=== PATIENT | female | born 1955 | race Caucasian/White ===

== ENCOUNTER 2023-03-31 12:32 | Emergency (ER) | payer MEDICARE, OTHER ==
[2023-03-31] MEDS ORDERED: Albuterol/Ipratropium 3.0-0.5 MG/3 ML Neb Soln NEB ONE (12:43)
[2023-03-31 13:07] LABS: BASOPHILS PERCENT AUTO 0.1 % (0.2-1.2); EOSINOPHILS ABSOLUTE AUTO 0.1 x10^3/uL (0.0-0.5); EOSINOPHILS PERCENT AUTO 0.6 % (0.0-4.0); HEMATOCRIT 37.1 % (33.0-47.0); HEMOGLOBIN 11.2 g/dL (12.0-16.0); IMMATURE GRAN ABSOLUTE AUTO 0.02 x10^3/uL (0.00-0.07); LYMPHOCYTES ABSOLUTE AUTO 1.8 x10^3/uL (1.0-4.8); LYMPHOCYTES PERCENT AUTO 17.2 % (25.0-50.0); MEAN CORPUSCULAR HEMOGLOBIN 22.6 pg (26.0-32.0); MEAN CORPUSCULAR HGB CONC 30.2 g/dL (32.0-36.0); MEAN CORPUSCULAR VOLUME 74.8 fL (78.0-93.0); MONOCYTES ABSOLUTE AUTO 0.7 x10^3/uL (0.0-0.8); MONOCYTES PERCENT AUTO 6.5 % (2.0-11.0); NEUTROPHILS ABSOLUTE AUTO 7.9 x10^3/uL (1.8-7.7); NEUTROPHILS PERCENT AUTO 75.4 % (50.0-80.0); RED BLOOD CELL COUNT 4.96 x10^6/uL (4.00-5.50); WHITE BLOOD CELL COUNT,WBC 10.5 x10^3/uL (4.0-10.0)
[2023-03-31 13:19] LABS: PLATELET COUNT,PLT 205 x10^3/uL (130-400)
[2023-03-31 13:29] LABS: D-DIMER QUANTITATIVE 4.38 mg/LFEU (<=0.58); INR 1.1 (0.9-1.1); PROTHROMBIN TIME 11.7 SEC (9.5-12.2); PTT,PARTIAL THROMBOPLSTIN TIME 23.9 SEC (23.6-33.6)
[2023-03-31 13:35] LABS: A/G RATIO 0.74; ALANINE AMINOTRANSFERASE,ALT 16 U/L (14-59); ALBUMIN 3.4 g/dL (3.4-5.0); ALKALINE PHOSPHATASE 117 U/L (46-116); ANION GAP 14.9 mmol/L (5-15); ASPARTATE AMNIOTRANSFERASE,AST 12 U/L (15-37); BILIRUBIN TOTAL 0.6 mg/dL (0.2-1.0); BLOOD UREA NITROGEN,BUN 16 mg/dL (7-18); C-REACTIVE PROTEIN 1.49 mg/dL (<=0.30); CALCIUM 8.9 mg/dL (8.5-10.1); CARBON DIOXIDE,CO2 25 mmol/L (21-32); CHLORIDE,CL 102 mmol/L (98-107); CREATININE 1.2 mg/dL (0.55-1.02); ESTIMATED GFR 50 mL/min (>=60); GLUCOSE RANDOM 325 mg/dL (70-99); POTASSIUM,K 3.9 mmol/L (3.5-5.1); PRO B-TYPE NATRIUR PEPT,BNPPRO 7560 pg/mL (<=125); SODIUM,NA 138 mmol/L (136-145)
[2023-03-31] MEDS ORDERED: Iopamidol 755 Mg/ML 100 ML Bottle IVPUSH ONE (13:42)
[2023-03-31] MEDS ORDERED: Furosemide 40 MG/4 ML VIAL IV ONE (14:22)
[2023-03-31 14:23] LABS: CORONAVIRUS COVID-19 NAA NEGATIVE (NEGATIVE); INFLUENZA A NAA NEGATIVE (NEGATIVE); INFLUENZA B NAA NEGATIVE (NEGATIVE)
[2023-03-31] MEDS ORDERED: Heparin Sodium 5,000 Units/ML Vial IVPUSH ONE (15:53)
[2023-03-31] MEDS ORDERED: Heparin Sodium/0.45% NaCl 25,000 UNITS/500 ML BAG IV SCH (16:00)
[2023-03-31] MEDS ORDERED: HYDROmorphone 0.5 MG/0.5 ML Syringe IVPUSH ONE (16:11)
[2023-03-31] MEDS ORDERED: Naloxone 0.4 MG/ML SDV IVPUSH PRN (16:11)
== END 2023-03-31 17:00 | disposition short-term general hospital (02) ==
LOC: VM.ED 12:32
DX: I26.99 Other pulmonary embolism without acute cor pulmonale (principal); R77.8 Other specified abnormalities of plasma proteins; I11.0 Hypertensive heart disease with heart failure; I50.9 Heart failure, unspecified; I25.10 Atherosclerotic heart disease of native coronary artery without angina pectoris; E11.9 Type 2 diabetes mellitus without complications; R00.0 Tachycardia, unspecified; Z91.048 Other nonmedicinal substance allergy status; Z88.8 Allergy status to other drugs, medicaments and biological substances; Z88.5 Allergy status to narcotic agent; Z20.822 Contact with and (suspected) exposure to COVID-19
CPT/HCPCS: 0240U; 36415; 71045; 71275; 80053; 83880; 84484; 85025; 85379; 85610; 85730; 86140; 93005; 93010; 94640; 96365; 96375; 99284; 99285-25; J1170; J1644; J1940; J7620-GY; Q9967

== ENCOUNTER 2024-03-19 15:36 | Emergency (ER) | payer MEDICARE, OTHER ==
[2024-03-19 16:09] LABS: BASOPHILS PERCENT AUTO 0.2 % (0.2-1.2); EOSINOPHILS ABSOLUTE AUTO 0.3 x10^3/uL (0.0-0.5); EOSINOPHILS PERCENT AUTO 4.2 % (0.0-4.0); HEMATOCRIT 36.1 % (33.0-47.0); HEMOGLOBIN 11.7 g/dL (12.0-16.0); IMMATURE GRAN ABSOLUTE AUTO 0.01 x10^3/uL (0.00-0.07); LYMPHOCYTES ABSOLUTE AUTO 2.1 x10^3/uL (1.0-4.8); MEAN CORPUSCULAR HGB CONC 32.4 g/dL (32.0-36.0); MEAN CORPUSCULAR VOLUME 83.2 fL (78.0-93.0); MONOCYTES ABSOLUTE AUTO 0.6 x10^3/uL (0.0-0.8); MONOCYTES PERCENT AUTO 8.5 % (2.0-11.0); NEUTROPHILS ABSOLUTE AUTO 3.6 x10^3/uL (1.8-7.7); NEUTROPHILS PERCENT AUTO 54.9 % (50.0-80.0); PLATELET COUNT,PLT 208 x10^3/uL (130-400); RED BLOOD CELL COUNT 4.34 x10^6/uL (4.00-5.50); WHITE BLOOD CELL COUNT,WBC 6.6 x10^3/uL (4.0-10.0)
[2024-03-19 16:41] LABS: A/G RATIO 1.06; ALANINE AMINOTRANSFERASE,ALT 21 U/L (14-59); ALBUMIN 3.6 g/dL (3.4-5.0); ALKALINE PHOSPHATASE 124 U/L (46-116); ANION GAP 13.7 mmol/L (5-15); ASPARTATE AMNIOTRANSFERASE,AST 18 U/L (15-37); BILIRUBIN TOTAL 0.5 mg/dL (0.2-1.0); BLOOD UREA NITROGEN,BUN 17 mg/dL (7-18); CALCIUM 8.9 mg/dL (8.5-10.1); CARBON DIOXIDE,CO2 27 mmol/L (21-32); CHLORIDE,CL 105 mmol/L (98-107); CREATININE 1.1 mg/dL (0.55-1.02); ESTIMATED GFR 55 mL/min (>=60); GLUCOSE RANDOM 220 mg/dL (70-99); POTASSIUM,K 3.7 mmol/L (3.5-5.1); PRO B-TYPE NATRIUR PEPT,BNPPRO 101 pg/mL (<=125); SODIUM,NA 142 mmol/L (136-145)
[2024-03-19 17:04] LABS: CORONAVIRUS COVID-19 NAA NEGATIVE (NEGATIVE); INFLUENZA A NAA NEGATIVE (NEGATIVE); INFLUENZA B NAA NEGATIVE (NEGATIVE); RESPIRATORY SYNCYTIAL VIR NAA NEGATIVE (NEGATIVE)
[2024-03-19] MEDS: Iopamidol 755 Mg/ML 100 ML Bottle IVPUSH ONE (17:33)
[2024-03-19] MEDS: Sodium Chloride 0.9% 500 ML IV ONE (17:50)
== END 2024-03-19 18:25 | disposition home or self-care (01) ==
LOC: VM.ED 15:36
DX: R05.9 Cough, unspecified (principal); I25.10 Atherosclerotic heart disease of native coronary artery without angina pectoris; I10 Essential (primary) hypertension; E78.00 Pure hypercholesterolemia, unspecified; E11.9 Type 2 diabetes mellitus without complications; Z88.8 Allergy status to other drugs, medicaments and biological substances; Z88.5 Allergy status to narcotic agent; Z91.048 Other nonmedicinal substance allergy status
CPT/HCPCS: 0241U; 36415; 71275; 80053; 83880; 84484; 85025; 93005; 99284; J7030; Q9967; 93010